=== PATIENT | male | born 1995 | race Hispanic/Latino ===

== ENCOUNTER 2018-06-24 16:46 | Emergency (ER) | payer MEDICAID, OTHER ==
[2018-06-24] MEDS ORDERED: CYCLOBENZAPRINE HCL 10 MG TABLET ONE (17:19)
[2018-06-24] MEDS ORDERED: IBUPROFEN 600 MG TABLET ONE (17:19)
[2018-06-24] MEDS ORDERED: ONDANSETRON ODT 4 MG TAB ONE (17:43)
[2018-06-24] MEDS ORDERED: LIDOCAINE 5% TOPICAL PATCH TP ONE (18:17)
== END 2018-06-24 18:23 | disposition home or self-care (01) ==
LOC: EDH 16:46
DX: S30.0XXA Contusion of lower back and pelvis, initial encounter (principal); Z72.0 Tobacco use; Y35.891A Legal intervention involving other specified means, law enforcement official injured, initial encounter; Y93.89 Activity, other specified; Y92.89 Other specified places as the place of occurrence of the external cause; Y99.8 Other external cause status
CPT/HCPCS: 72072; 72100